=== PATIENT | male | born 1980 | race Caucasian/White ===

== ENCOUNTER → 2020-03-19 | Outpatient (CLI) | payer OTHER ==
[2020-03-19 09:31] LABS: PV SEMEN COLOR STRAW; PV SEMEN PH 8.4 (>7.1); PV SEMEN VISCOSITY NORMAL (NORMAL)
[2020-03-19 09:32] LABS: PV NONMOTILE COUNT1 237; PV NONMOTILE COUNT2 222; PV ROUND CELL CONCENTRATION 0.6 X10^6/mL (<5.1); PV ROUND CELL COUNT1 5; PV ROUND CELL COUNT2 6; PV SEMEN LIQUEFACTION 30 MINUTES (<61)
[2020-03-19 09:51] LABS: PV SPERM CONCENTRATION 34.6 X10^6/mL (0.0); PV SPERM MOTILITY 34 % (0)
== END ==
LOC: OD 08:02
PROVIDERS: ATTEND Urology
DX: Z30.2 Encounter for sterilization (principal)
CPT/HCPCS: 89321